=== PATIENT | female | born 1975 | race Hispanic/Latino ===

== ENCOUNTER 2018-04-17 18:33 | Emergency (ER) | payer BC ==
[2018-04-17] MEDS ORDERED: LIDOCAINE 1% MPF 5 ML VIAL ONE (20:34)
[2018-04-17] MEDS ORDERED: HYDROCODONE/APAP 10/325 TAB ONE (20:34)
--- NOTE | 2018-04-17 21:29 | EDPHYS ---
Physician Documentation [facility] Name: Jannet Dasilva Age: 42 yrs Sex: Female : 1975 Arrival Date: 04/17/2018 Time: 18:35 Bed 24 Private MD: None, None ED Physician Willie Sarah HPI: 04/17 20:49 This 42 yrs old Female presents to ER via Ambulatory with complaints of jmm Abscess. 20:49 Onset: The symptoms/episode began/occurred gradually, 2 week(s) ago. Possible cause(s): jmm unknown. Associated signs and symptoms: The patient has no apparent associated signs or symptoms, Pertinent positives: swelling, Pertinent negatives: fever. Modifying factors: the symptoms are alleviated by nothing, the symptoms are aggravated by nothing. The patient has experienced similar episodes in the past, multiple times. 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 - Social history:: Smoking status: Patient/guardian denies using tobacco. - Ebola Screening: : No symptoms or risks identified at this time. ROS: 20:49 Constitutional: Negative for fever, chills, and weight loss, Eyes: Negative for injury, jmm pain, redness, and discharge, ENT: Negative for injury, pain, and discharge, Neck: Negative for injury, pain, and swelling, Cardiovascular: Negative for chest pain, palpitations, and edema, Respiratory: Negative for shortness of breath, cough, wheezing, and pleuritic chest pain, Abdomen/GI: Negative for abdominal pain, nausea, vomiting, diarrhea, and constipation, Back: Negative for injury and pain. 20:49 Skin: Positive for swelling. 20:49 All other systems are negative. Exam: 20:49 Constitutional: This is a well developed, well nourished patient who is awake, alert, jmm and in no acute distress. Head/Face: atraumatic. Eyes: EOMI, no conjunctival erythema appreciated ENT: Moist Mucus Membranes Neck: Trachea midline, Supple Chest/axilla: Normal chest wall appearance and motion. Cardiovascular: Regular rate and rhythm. No edema appreciated Respiratory: Normal respirations, no respiratory distress appreciated Abdomen/GI: Non distended, soft 20:49 Skin: abscess noted to the left axilla, TTP. 20:49 Neuro: Orientation: is normal, Mentation: is normal, Memory: is normal. 20:49 Psych: Behavior/mood is pleasant, cooperative. Vital Signs: 19:05 BP 140 / 90; Pulse 73; Resp 16; Temp 97.2; Pulse Ox 100% on R/A; Weight 126.1 kg (R); ak1 Height 5 ft. 2 in. (157.48 cm) (R); Pain 10/10; 21:36 BP 125 / 90; Pulse 80; Resp 18; Pulse Ox 100% on R/A; mg2 19:05 Body Mass Index 50.85 (126.10 kg, 157.48 cm) ak1 Procedures: 21:26 I \T\ D: Incision and drainage was performed for an abscess of the left axilla. Prepped jmm with Betadine, Anesthetized with 5 ml's 1% Lidocaine. Incised with #11 blade. Drained moderate amount purulent fluid. Packed with sterile gauze, Dressing: sterile 4x4 gauze, the patient tolerated the procedure well. MDM: 20:06 Patient medically screened. [facility] 21:26 Data reviewed: vital signs, nurses notes. Counseling: I had a detailed discussion with antony the patient and/or guardian regarding: the historical points, exam findings, and any diagnostic results supporting the discharge/admit diagnosis, to return to the emergency department if symptoms worsen or persist or if there are any questions or concerns that arise at home. 21:26 ED course: Patient given wound infection return precautions. Patient understood and antony agrees with the plan of care. . 04/17 20:13 Order name: Incision \T\ Drainage Setup; Complete Time: 20:27 nirali Administered Medications: 20:27 Drug: [place] 10 mg-325 mg 1 tabs Route: PO; mg2 21:26 Follow up: Response: No adverse reaction; Marked relief of symptoms mg2 21:11 Drug: Lidocaine (1 %) 5 mg Route: Infiltration; mg2 21:26 Follow up: Response: No adverse reaction; Marked relief of symptoms mg2 Disposition: 04/18 06:08 Co-signature as Attending Physician, Willie Sarah MD I agree with the assessment and tw4 plan of care. Disposition: 04/17/18 21:28 Discharged to Home. Impression: Cutaneous abscess of left axilla. - Condition is Stable. - Discharge Instructions: Skin Abscess, Incision and Drainage. - Prescriptions for Bactrim DS 800- 160 mg Oral Tablet - take 1 tablet by ORAL route every 12 hours for 10 days; 20 tablet. - Medication Reconciliation Form, Thank You Letter, Antibiotic Education, Prescription Opioid Use form. - Follow up: Juan Jones MD; When: 2 - 3 days; Reason: Recheck today's complaints, Continuance of care, Re-evaluation by your physician. Signatures: Damien Mohamud PA PA jmm Krenek, Amber RN RN ak1 Willie Sarah MD MD tw4 Juancarlos Abraham RN RN mg2 Corrections: (The following items were deleted from the chart) 04/17 21:36 21:28 04/17/2018 21:28 Discharged to Home. Impression: Cutaneous abscess of left mg2 axilla. Condition is Stable. Forms are Medication Reconciliation Form, Thank You Letter, Antibiotic Education, Prescription Opioid Use. Follow up: Juan Jones; When: 2 - 3 days; Reason: Recheck today's complaints, Continuance of care, Re-evaluation by your physician. antony
--- NOTE | 2018-04-17 21:29 | ER ---
Nurse's Notes [facility] Name: Jannet Dasilva Age: 42 yrs Sex: Female : 1975 Arrival Date: 04/17/2018 Time: 18:35 Bed 24 Private MD: None, None Diagnosis: Cutaneous abscess of left axilla Presentation: 04/17 19:04 Presenting complaint: Patient states: abscess under left arm X2 weeks. Transition of ak1 care: patient was not received from another setting of care. Onset of symptoms is unknown. Risk Assessment: Do you want to hurt yourself or someone else? Patient reports no desire to harm self or others. Initial Sepsis Screen: Does the patient meet any 2 criteria? No. Patient's initial sepsis screen is negative. Does the patient have a suspected source of infection? No. Patient's initial sepsis screen is negative. Care prior to arrival: None. 19:04 Method Of Arrival: Ambulatory ak1 19:04 Acuity: MAVIS 4 ak1 Triage Assessment: 19:05 General: Appears in no apparent distress. Behavior is calm, cooperative. Pain: ak1 Complains of pain in left axilla. EENT: No signs and/or symptoms were reported regarding the EENT system. Neuro: No deficits noted. Cardiovascular: No deficits noted. Respiratory: No deficits noted. GI: No signs and/or symptoms were reported involving the gastrointestinal system. : No signs and/or symptoms were reported regarding the genitourinary system. Derm: Abscess. Musculoskeletal: No signs and/or symptoms reported regarding the musculoskeletal system. 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 - Social history:: Smoking status: Patient/guardian denies using tobacco. - Ebola Screening: : No symptoms or risks identified at this time. Screenin:06 Abuse screen: Denies threats or abuse. Denies injuries from another. Nutritional ak1 screening: No deficits noted. Tuberculosis screening: No symptoms or risk factors identified. Fall Risk None identified. Assessment: 20:27 General: Appears in no apparent distress. comfortable, Behavior is calm, cooperative. mg2 Pain: Complains of pain in left axilla Pain does not radiate. Pain currently is 8 out of 10 on a pain scale. Quality of pain is described as aching, Pain began gradually, 2 weeks ago Is intermittent. Neuro: Level of Consciousness is awake, alert, obeys commands, Oriented to person, place, time, situation. Cardiovascular: Capillary refill < 3 seconds Patient's skin is warm and dry. Respiratory: Airway is patent Respiratory effort is even, unlabored, Respiratory pattern is regular, symmetrical. GI: No signs and/or symptoms were reported involving the gastrointestinal system. : No signs and/or symptoms were reported regarding the genitourinary system. EENT: No signs and/or symptoms were reported regarding the EENT system. Derm: Skin is healthy with good turgor, Abscess located on left axilla is nickel sized, is red, is raised. Musculoskeletal: Circulation, motion, and sensation intact. Capillary refill < 3 seconds. Vital Signs: 19:05 BP 140 / 90; Pulse 73; Resp 16; Temp 97.2; Pulse Ox 100% on R/A; Weight 126.1 kg (R); ak1 Height 5 ft. 2 in. (157.48 cm) (R); Pain 10/10; 21:36 BP 125 / 90; Pulse 80; Resp 18; Pulse Ox 100% on R/A; mg2 19:05 Body Mass Index 50.85 (126.10 kg, 157.48 cm) ak1 ED Course: 18:35 Patient arrived in ED. mr 18:36 None, None is Private Physician. mr 19:05 Triage completed. ak1 19:05 Arm band placed on Patient placed in waiting room, Patient notified of wait time. ak1 19:59 Damien Mohamud PA is PHCP. [facility] 19:59 Willie Sarah MD is Attending Physician. [facility] 20:17 Juancarlos Abraham, DOLLY is Primary Nurse. mg2 20:30 Patient has correct armband on for positive identification. Door closed. Warm blanket mg2 given. 21:25 Assist provider with I \T\ D: of an abscess on left axilla Set up I\T\D tray. Performed by mg 2 Damien HERNANDEZ Wound packed. iodoform gauze, Dressing with 4X4s, Patient tolerated well. Patient did not have IV access during this emergency room visit. 21:28 Juan Jones MD is Referral Physician. antony Administered Medications: 20:27 Drug: [place] 10 mg-325 mg 1 tabs Route: PO; mg2 21:26 Follow up: Response: No adverse reaction; Marked relief of symptoms mg2 21:11 Drug: Lidocaine (1 %) 5 mg Route: Infiltration; mg2 21:26 Follow up: Response: No adverse reaction; Marked relief of symptoms mg2 Outcome: 21:28 Discharge ordered by . antony 21:35 Discharged to home ambulatory. mg2 21:35 Condition: stable 21:35 Discharge instructions given to patient, Instructed on discharge instructions, follow up and referral plans. medication usage, Demonstrated understanding of instructions, follow-up care, medications, wound care, Prescriptions given X 1. 21:36 Patient left the ED. mg2 Signatures: Damien Mohamud PA PA jmm Rivera, Mary mr Karla Valencia RN RN ak1 Juancarlos Abraham RN RN mg2
[2018-04-17] MEDS ORDERED: PROMETHAZINE 25 MG/ML VIAL ONE (21:36)
== END 2018-04-17 21:36 | disposition home or self-care (01) ==
LOC: ER 18:33
PROC: 0J9F0ZZ Drainage of Left Upper Arm Subcutaneous Tissue and Fascia, Open Approach (ICD-10-PCS; principal; 2018-04-17)
DX: L02.412 Cutaneous abscess of left axilla (principal)
CPT/HCPCS: 99283; J2550